=== PATIENT | male | born 1945 | race Caucasian/White ===

== ENCOUNTER 2019-06-12 16:00 | Emergency (ER) | payer MEDICARE, OTHER ==
[~2019-06-12] VITALS: Ht 182.9 cm; Wt 95.5 kg
[~2019-06-12 16:00] MED LIST: ASPIRIN 81M81 MG/TA2 PO; COLACE 100100 MG/CAP PO; FLOMAX 0.40.4 MG/CAP PO; MULTI VITAMINS1 TAB PO; NORCO 325 MG-51 TAB PO; PERCOCET 325 MG1 TA2 PO; PLAVIX 75MG TAB75 MG PO; PRAVACHOL 20MG20 MG PO; PROSCAR 5MG5 MG PO; PYRIDIUM 100MG100 MG PO; VASOTEC 10M10 MG/TAB PO
[2019-06-12 16:04] VITALS: TEMP 97.9
[2019-06-12 16:32] LABS: BASO % 0.7 % (0.0-2.0); EOS # 0.2 (0.0-0.7); EOS % 2.8 % (0-4.0); GRAN # 3.3 (1.4-6.5); GRAN % 57.4 % (42.2-75.2); HEMATOCRIT 41.8 % (42.0-52.0); LYMPH # 1.8 (1.2-3.4); LYMPH % 31.2 % (20.0-51.0); MEAN CELL VOLUME 95 fl (80.0-100.0); MEAN CORPUSCULAR HEMOGLOBIN 32 pg (27.0-31.0); MEAN CORPUSCULAR HGB CONC 34 g/dl (33.0-37.0); MEAN PLATELET VOLUME 11.9 fl (7.4-10.4); MONO # 0.4 (0.1-0.6); MONO % 7.7 % (1.7-9.3); PLATELET COUNT 164 K/mm3 (130-400); RED BLOOD COUNT 4.39 M/mm3 (4.20-5.60)
[2019-06-12 16:37] LABS: INR 0.9 (0.8-3.0)
[2019-06-12 16:40] LABS: PARTIAL THROMBOPLASTIN TIME 30.1 SECONDS (26.0-37.0)
[2019-06-12 16:41] LABS: ALANINE AMINOTRANSFERASE 19 U/L (21-72); ALBUMIN 4.3 gm/dL (3.5-5.0); ALKALINE PHOSPHATASE 63 U/L (50-136); ANION GAP 9 mmol/L (7-16); AST,SGOT 23 U/L (15-37); BILIRUBIN,TOTAL 0.2 mg/dL (0.0-1.0); BLOOD UREA NITROGEN 20 mg/dL (9-20); CALCIUM 9.4 mg/dL (8.4-10.2); CARBON DIOXIDE 26 mmol/L (22-30); CHLORIDE 105 mmol/L (98-107); CREATINE KINASE 65 U/L (55-170); CREATININE, serum 1.01 (0.66-1.25); GLUCOSE 84 mg/dL (74-106); POTASSIUM 4.4 mmol/L (3.4-5.0); SODIUM 140 mmol/L (137-145); TOTAL PROTEIN 7.4 gm/dL (6.4-8.2)
[2019-06-12 16:48] LABS: D-DIMER < 200.00 ng/mLDDu (200-230)
[2019-06-12 16:54] LABS: TROPONIN-I < 0.012 ng/mL (0.000-0.035)
[2019-06-12] MEDS ORDERED: B-121000 MCG PO (17:06)
[2019-06-12] MEDS ORDERED: VITAMIN B12 1541 TAB PO (17:06)
[2019-06-12] MEDS ORDERED: EPA FISH OIL1 SGL PO (17:07)
[2019-06-12] MEDS ORDERED: NAPROXEN 3375 MG/TAB PO (19:52)
[2019-06-12 19:59] VITALS: BP 133/74; PULSE 44
== END 2019-06-12 19:59 | disposition home or self-care (01) ==
LOC: COL.ER 16:00
PROVIDERS: Emergency Medicine
DX: R07.81 Pleurodynia (principal); I10 Essential (primary) hypertension; E78.5 Hyperlipidemia, unspecified; Z79.02 Long term (current) use of antithrombotics/antiplatelets; Z79.82 Long term (current) use of aspirin; Z86.73 Personal history of transient ischemic attack (TIA), and cerebral infarction without residual deficits
CPT/HCPCS: J1885

== ENCOUNTER 2020-02-16 10:34 | Observation (INO) | payer MEDICARE, OTHER ==
[~2020-02-16] VITALS: Ht 182.9 cm; Wt 88.9 kg
[2020-02-16] VITALS (8 sets, daily range): BP systolic 119–149; BP diastolic 49–91; PULSE 46–74; TEMP 97.5–98.5
[~2020-02-16 10:34] MED LIST changes: +B-121000 MCG PO; +EPA FISH OIL1 SGL PO; +NAPROXEN 3375 MG/TAB PO; +VITAMIN B12 1541 TAB PO
--- NOTE | 2020-02-16 11:45 | NUR ---
Patients admission orders have been entered. Patient denies nausea. He is having increased pain to the right side. IV started to left forearm. Oriented patient to room. No other changes at this time. Call light within reach.
[2020-02-16] MEDS ORDERED: EYE PROMISE PO (12:31)
[2020-02-16] MEDS ORDERED: PREVAGEN PO (12:34)
[2020-02-16] MEDS ORDERED: OXY IR5 MG PO (12:34)
[2020-02-16] MEDS ORDERED: ULTRAM 50MG TAB50 MG PO (12:35)
--- NOTE | 2020-02-16 16:30 | NUR ---
Patient is going to surgery at this time. Consent signed and on the chart. at bedside.
--- NOTE | 2020-02-16 18:30 | NUR ---
Patient came back fro surgery at 1809. He is resting comfortably at this time. Ordered him a dinner tray. Explained the criteria for discharge. Patient is alert and oriented. No other changes at this time. Call light within reach.
--- NOTE | 2020-02-16 19:30 | NUR ---
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 Assessment complete. Denies nausea/shortness of breath. States he has a slight burning sensation at the tip of the penis but denies any other pain. Post op vitals remain [id number] is baseline. Plan of care discussed for meeting discharge criteria. Provided with general diet tray. Instructed to call when there is an urge to urinate to assist up for first time. Verbalizes understanding. Call light in reach-spouse at bedside. Will monitor.
--- NOTE | 2020-02-16 20:00 | NUR ---
Assisted to bathroom at this time for void trial. Voided 500mls light red urine without difficulty. Tolerated general diet tray with no nausea. Denies pain/shortness of breath. Post op vitals remained stable-continued bradycardia in the 50s-baseline. Denies questions/concerns. Call light in reach. Will monitor.
--- NOTE | 2020-02-16 20:20 | NUR ---
Discharge criteria met. Discharge instructions given both verbal and handwritten. Instructed to call for f/u appt. Patient education provided to include reporting increase in bleeding, unable to void, elevated temperature. Encouraged to drink 8-10 glasses of water. All questions answered. IV to right forearm DCd-cath intact-no s/s of infection noted. Escorted off floor in wheelchair accompanied by spouse in stable condition.
== END 2020-02-16 20:20 | disposition home or self-care (01) ==
LOC: JCC 11:04
PROVIDERS: ADMIT Urology
DX: N20.2 Calculus of kidney with calculus of ureter (principal); I10 Essential (primary) hypertension; E78.5 Hyperlipidemia, unspecified; I38 Endocarditis, valve unspecified; Z87.01 Personal history of pneumonia (recurrent); Z79.02 Long term (current) use of antithrombotics/antiplatelets; Z79.82 Long term (current) use of aspirin; Z86.73 Personal history of transient ischemic attack (TIA), and cerebral infarction without residual deficits; Z79.899 Other long term (current) drug therapy; Z87.891 Personal history of nicotine dependence; Z80.0 Family history of malignant neoplasm of digestive organs
CPT/HCPCS: C1769; C2617; G0378; J0690; J1100; J1885; J2405; J2704; J3010; J7030; J7120; Q9967

== ENCOUNTER 2024-03-11 07:41 | Emergency (ER) | payer MEDICARE, OTHER ==
[~2024-03-11] VITALS: Ht 182.9 cm; Wt 88.6 kg
[~2024-03-11 07:41] MED LIST changes: +EYE PROMISE PO; +OXY IR5 MG PO; +PREVAGEN PO; +ULTRAM 50MG TAB50 MG PO
[2024-03-11 07:59] VITALS: TEMP 97.9
[2024-03-11 09:06] LABS: HEMATOCRIT 44.3 % (42.0-52.0); HEMOGLOBIN 14.3 g/dl (13.5-18.0); MEAN CELL VOLUME 98 fl (80.0-100.0); MEAN CORPUSCULAR HEMOGLOBIN 32 pg (27-31); MEAN CORPUSCULAR HGB CONC 32 g/dl (33.0-37.0); MEAN PLATELET VOLUME 11.6 fl (7.4-10.4); PLATELET COUNT 198 K/mm3 (130-400); REDCELL DISTRIBUTION WIDTH-CV 14.2 % (11.5-14.5)
[2024-03-11 09:09] LABS: URINE APPEARANCE CLEAR (CLEAR/HAZY); URINE BLOOD NEGATIVE (NEGATIVE); URINE COLOR YELLOW (YELLOW); URINE GLUCOSE NEGATIVE (NEGATIVE); URINE KETONE NEGATIVE (NEGATIVE); URINE NITRATE NEGATIVE (NEGATIVE); URINE PROTEIN(semi-quant) NEGATIVE (NEGATIVE); URINE UROBILINOGEN 0.2 E.U/dL (0.2-1.0)
[2024-03-11 09:25] LABS: ALANINE AMINOTRANSFERASE 22 U/L (0-55); ALBUMIN 4.3 g/dL (3.4-4.8); ALKALINE PHOSPHATASE 86 U/L (40-150); ANION GAP 7 mmol/L (7-16); AST,SGOT 24 U/L (5-34); BILIRUBIN,TOTAL 0.3 mg/dL (0.2-1.2); BLOOD UREA NITROGEN 25 mg/dL (8-26); CALCIUM 10.2 mg/dL (8.4-10.2); CHLORIDE 103 mEq/L (98-107); CREATININE, serum 1.04 mg/dL (0.72-1.25); GLUCOSE 101 mg/dL (70-99); POTASSIUM 4.9 mEq/L (3.5-4.5); SODIUM 138 mEq/L (136-145); TOTAL PROTEIN 8.1 g/dl (6.2-8.1)
[2024-03-11 09:33] LABS: TROPONIN-I < 0.010 ng/mL (0.00-0.033)
[2024-03-11 09:38] LABS: COLLECTION METHOD CLEAN CATCH
[2024-03-11] MEDS ORDERED: NORCO 325 MG-51 TAB PO (11:10)
[2024-03-11 11:15] VITALS: BP 114/77; PULSE 65
== END 2024-03-11 11:26 | disposition home or self-care (01) ==
LOC: COL.ER 07:41
PROVIDERS: Family Medicine
DX: S20.229A Contusion of unspecified back wall of thorax, initial encounter (principal); V89.2XXA Person injured in unspecified motor-vehicle accident, traffic, initial encounter; Y92.410 Unspecified street and highway as the place of occurrence of the external cause

== ENCOUNTER 2024-04-25 10:01 | Emergency (ER) | payer MEDICARE, OTHER ==
[~2024-04-25] VITALS: Ht 152.4 cm; Wt 88.6 kg
[2024-04-25 10:05] VITALS: TEMP 98
[2024-04-25 10:46] LABS: COLLECTION METHOD CLEAN CATCH
[2024-04-25 10:52] LABS: BASO # 0.1 K/mm3 (0.0-0.2); EOS # 0.1 K/mm3 (0.0-0.7); EOS % 2.9 % (0.0-4.0); GRAN % 62.6 % (42.2-75.2); HEMATOCRIT 42.3 % (42.0-52.0); HEMOGLOBIN 13.9 g/dl (13.5-18.0); LYMPH # 1.2 K/mm3 (1.2-3.4); LYMPH % 25.4 % (20.0-51.0); MEAN CELL VOLUME 97 fl (80.0-100.0); MEAN CORPUSCULAR HEMOGLOBIN 32 pg (27-31); MEAN CORPUSCULAR HGB CONC 33 g/dl (33.0-37.0); MEAN PLATELET VOLUME 11.1 fl (7.4-10.4); MONO # 0.4 K/mm3 (0.1-0.6); MONO % 7.9 % (1.7-9.3); PH 5.5 (5.0-8.5); PLATELET COUNT 180 K/mm3 (130-400); RED BLOOD COUNT 4.36 M/mm3 (4.20-5.60); REDCELL DISTRIBUTION WIDTH-CV 13.8 % (11.5-14.5); URINE APPEARANCE CLEAR (CLEAR/HAZY); URINE BLOOD NEGATIVE (NEGATIVE); URINE COLOR YELLOW (YELLOW); URINE GLUCOSE NEGATIVE (NEGATIVE); URINE KETONE NEGATIVE (NEGATIVE); URINE NITRATE NEGATIVE (NEGATIVE); URINE PROTEIN(semi-quant) NEGATIVE (NEGATIVE); URINE UROBILINOGEN 0.2 E.U/dL (0.2-1.0)
[2024-04-25 11:24] LABS: ALANINE AMINOTRANSFERASE 24 U/L (0-55); ALBUMIN 3.9 g/dL (3.4-4.8); ALKALINE PHOSPHATASE 85 U/L (40-150); ANION GAP 9 mmol/L (7-16); AST,SGOT 20 U/L (5-34); BILIRUBIN,TOTAL 0.4 mg/dL (0.2-1.2); BLOOD UREA NITROGEN 28 mg/dL (8-26); CHLORIDE 107 mEq/L (98-107); CREATININE, serum 0.85 mg/dL (0.72-1.25); GLUCOSE 91 mg/dL (70-99); POTASSIUM 4.6 mEq/L (3.5-4.5); SODIUM 140 mEq/L (136-145); TOTAL PROTEIN 7.1 g/dl (6.2-8.1)
[2024-04-25 12:18] LABS: TROPONIN-I < 0.010 ng/mL (0.00-0.033)
[2024-04-25 12:38] VITALS: BP 104/70; PULSE 60
== END 2024-04-25 12:45 | disposition home or self-care (01) ==
LOC: COL.ER 10:01
PROVIDERS: Physician Assistant
DX: R20.2 Paresthesia of skin (principal); I48.91 Unspecified atrial fibrillation; Z79.01 Long term (current) use of anticoagulants; Z79.899 Other long term (current) drug therapy; Z79.82 Long term (current) use of aspirin; Z87.891 Personal history of nicotine dependence